=== PATIENT | female | born 1955 | race Caucasian/White ===

== ENCOUNTER → 2018-01-27 | Outpatient (CLI) | payer SELFPAY ==
[~2018-01-27] MED LIST: ASPIR-LOW81 MG PO; MVI
[2018-01-27 15:43] LABS: HEMATOCRIT 42.4 % (37.0-47.0); HEMOGLOBIN 14.2 g/dl (12.5-16.0); MEAN CELL VOLUME 94 fl (80.0-100.0); MEAN CORPUSCULAR HEMOGLOBIN 31 pg (27.0-31.0); MEAN CORPUSCULAR HGB CONC 34 g/dl (33.0-37.0); MEAN PLATELET VOLUME 10.7 fl (7.4-10.4); PLATELET COUNT 323 K/mm3 (130-400); RED BLOOD COUNT 4.53 M/mm3 (4.10-5.30)
[2018-01-27 15:59] LABS: BILIRUBIN,TOTAL 0.3 mg/dL (0.0-1.0); CALCIUM 9.5 mg/dL (8.4-10.2); CREATININE, serum 0.81 mg/dL (0.52-1.25); POTASSIUM 4.2 mmol/L (3.4-5.0); TOTAL PROTEIN 7.1 gm/dL (6.4-8.2)
[2018-01-27 16:27] LABS: THYROID STIMULATING HORMONE 1.95 uIU/mL (0.465-4.680)
== END ==
LOC: ZLAB.FHCC 14:03
PROVIDERS: Internal Medicine
DX: I10 Essential (primary) hypertension (principal)

== ENCOUNTER 2019-01-22 12:47 | Emergency (ER) | payer SELFPAY ==
[~2019-01-22] VITALS: Ht 162.6 cm; Wt 70.5 kg
[2019-01-22 13:00] VITALS: BP 144/96; TEMP 98.3
[2019-01-22] MEDS ORDERED: ASPIRIN 32325 MG/TAB PO (13:34)
[2019-01-22 14:39] VITALS: PULSE 82
== END 2019-01-22 14:50 | disposition home or self-care (01) ==
LOC: COL.ER 12:47
DX: I80.9 Phlebitis and thrombophlebitis of unspecified site (principal); I10 Essential (primary) hypertension; Z79.82 Long term (current) use of aspirin

== ENCOUNTER → 2021-10-05 | Outpatient (CLI) | payer MEDICARE ==
[~2021-10-05] MED LIST changes: +ASPIRIN 32325 MG/TAB PO
== END ==
LOC: COL.RAD 14:30
DX: Z12.2 Encounter for screening for malignant neoplasm of respiratory organs (principal); Z87.891 Personal history of nicotine dependence

== ENCOUNTER → 2021-12-18 | Outpatient (CLI) | payer MEDICARE, MEDICAID ==
[~2021-12-18] MED LIST changes: +ASPIRIN 81M81 MG/TA2 PO; +CHOLESTEROL MED; +DESYREL 100MG100 MG PO; +ZESTRIL 10MG10 MG PO; +ZOLOFT 25MG25 MG PO
== END ==
LOC: COL.VAS 08:58
DX: R60.0 Localized edema (principal)

== ENCOUNTER → 2021-12-24 | Outpatient (CLI) | payer MEDICARE, MEDICAID | LOC: COL.RAD 09:07 | DX: I63.9 Cerebral infarction, unspecified (principal); I67.82 Cerebral ischemia | CPT/HCPCS: A9575 ==